=== PATIENT | female | born 1970 | race Caucasian/White ===

== ENCOUNTER 2017-05-17 11:39 | Emergency (ER) | payer OTHER ==
[~2017-05-17] VITALS: Ht 152.4 cm; Wt 98.6 kg
[~2017-05-17 11:39] MED LIST: CHOL500011 PO; CLOT15CR5 TP; LISI-567 PO
[2017-05-17 11:41] VITALS: BP 157/100; PULSE 69; RESP 17; O2SAT 99
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
[2017-05-17] MEDS ORDERED: CYCL5TAB PO (13:16)
[2017-05-17 13:25] VITALS: BP 157/100; PULSE 69; RESP 17; O2SAT 99
== END 2017-05-17 13:25 | disposition home or self-care (01) ==
LOC: SED 11:39
DX: S16.1XXA Strain of muscle, fascia and tendon at neck level, initial encounter (principal); S80.02XA Contusion of left knee, initial encounter; V53.5XXA Driver of pick-up truck or van injured in collision with car, pick-up truck or van in traffic accident, initial encounter; Y92.410 Unspecified street and highway as the place of occurrence of the external cause; Y93.89 Activity, other specified; Y99.8 Other external cause status; I10 Essential (primary) hypertension; Z87.891 Personal history of nicotine dependence; Z88.6 Allergy status to analgesic agent